=== PATIENT | male | born 1965 | race Caucasian/White ===

== ENCOUNTER 2019-05-31 07:50 | Day surgery (SDC) | payer MEDICAID ==
[~2019-05-31 07:50] MED LIST: Lactated Ringers 1,000 ML IV SCH
[2019-05-31] MEDS ORDERED: Propofol 200 MG/20 ML SDV ONE ×2 (09:03→10:04)
[2019-05-31] MEDS ORDERED: fentaNYL 100 MCG/2 ML SDV ONE (09:03)
[2019-05-31] MEDS ORDERED: Ondansetron 4 MG/2 ML SDV ONE (09:49)
[2019-05-31 12:39] VITALS: BP 110/65; PULSE 61
== END 2019-05-31 13:05 | disposition home or self-care (01) ==
LOC: VM.SDS 07:50
PROVIDERS: ATTEND Surgery
DX: K58.9 Irritable bowel syndrome, unspecified (principal); K64.8 Other hemorrhoids; Q43.8 Other specified congenital malformations of intestine; E78.5 Hyperlipidemia, unspecified; E29.1 Testicular hypofunction; F32.9 Major depressive disorder, single episode, unspecified; G43.909 Migraine, unspecified, not intractable, without status migrainosus; G47.10 Hypersomnia, unspecified; K21.9 Gastro-esophageal reflux disease without esophagitis; F41.9 Anxiety disorder, unspecified; R06.83 Snoring; M17.11 Unilateral primary osteoarthritis, right knee; Z88.8 Allergy status to other drugs, medicaments and biological substances; Z88.4 Allergy status to anesthetic agent; Z79.899 Other long term (current) drug therapy
CPT/HCPCS: J2405; J2704; J3010; J7120

== ENCOUNTER 2019-10-29 20:26 | Emergency (ER) | payer MEDICAID ==
[2019-10-29] MEDS ORDERED: Sodium Chloride 0.9% 10 ML Syringe FLUSH PRN (21:04)
[2019-10-29] MEDS ORDERED: Sodium Chloride 0.9% 1,000 ML IV ONE (21:05)
[2019-10-29 21:18] VITALS: BP 126/78; PULSE 68
[2019-10-29 21:54] LABS: CHLORIDE,CL 105 mmol/L (98-107); SODIUM,NA 144 mmol/L (136-145)
[2019-10-29 21:55] LABS: ANION GAP 16.6 mmol/L (10-20)
--- NOTE | 2019-10-30 05:08 | EDM.PDOC ---
ED HPI GENERAL MEDICAL PROBLEM - General Chief Complaint: General Stated Complaint: Vomiting, headache Time Seen by Provider: 10/29/19 20:40 Source of Information: Reports: Patient History Limitations: Reports: No Limitations - History of Present Illness INITIAL COMMENTS - FREE TEXT/NARRATIVE: Pt. presents to ER with complaints of nausea, vomiting, chills, and loose stools today. Pt. states that the symptoms started this AM. He states that he is actually feeling better than he was. He has not been checking his temp. Denies any cough or chest congestion. He has had influenza B this year. Denies any chest pain or shortness of breath. He states that he is hungry and wonders if he can eat. Denies and focal abdominal discomfort. He complaints of diffuse abdominal cramping, however. Denies any sick contacts. Onset: Today Onset Date: 10/30/19 Location: Reports: Abdomen, Generalized Associated Symptoms: Reports: Nausea/Vomiting frontal headache Pain Score (Numeric/FACES): 3 - Related Data Allergies Allergy/AdvReac Type Severity Reaction Status Date / Time duloxetine HCl Allergy Other Verified 10/29/19 21:18 [From Cymbalta] meclizine HCl [From Antivert] Allergy Hives Verified 10/29/19 21:18 GENERAL ANESTHESIA Allergy Other Uncoded 10/29/19 21:18 Home Meds: Home Meds Lubiprostone [Amitiza] 8 mcg PO BID 02/10/16 [History] Past Medical History HEENT History: Reports: Allergic Rhinitis, Impaired Vision, Other (See Below) Other HEENT History: Pt states has had problems with jaw locking in the past but never needed treatment. Jaw dislocation. cerumen impaction. vitreous detachment Cardiovascular History: Reports: High Cholesterol Respiratory History: Reports: None, Other (See Below) Other Respiratory History: dyspnea Gastrointestinal History: Reports: Chronic Constipation, Irritable Bowel Syndrome, Other (See Below) Other Gastrointestinal History: abdomenal pain, Fructose intolerant Genitourinary History: Reports: None Musculoskeletal History: Reports: Osteoarthritis Other Musculoskeletal History: Right knee Neurological History: Reports: Migraines Psychiatric History: Reports: Depression, Other (See Below) Other Psychiatric History: fatigue Endocrine/Metabolic History: Reports: None Hematologic History: Reports: None Other Immunologic History: IBS-C Oncologic (Cancer) History: Reports: None Dermatologic History: Reports: Eczema - Past Surgical History Cardiovascular Surgical History: Reports: None Musculoskeletal Surgical History: Reports: None ED ROS GENERAL - Review of Systems Review Of Systems: See Below Constitutional: Reports: No Symptoms HEENT: Reports: No Symptoms Respiratory: Reports: No Symptoms Cardiovascular: Reports: No Symptoms Endocrine: Reports: No Symptoms GI/Abdominal: Reports: Flatus, Mucous in Stool, Nausea, Vomiting : Reports: No Symptoms Musculoskeletal: Reports: No Symptoms Skin: Reports: No Symptoms Neurological: Reports: No Symptoms Psychiatric: Reports: No Symptoms Hematologic/Lymphatic: Reports: No Symptoms Immunologic: Reports: No Symptoms ED EXAM, GENERAL - Physical Exam Exam: See Below Exam Limited By: No Limitations General Appearance: Alert, WD/WN, No Apparent Distress Eye Exam: Bilateral Eye: EOMI Nose: Normal Inspection, Normal Mucosa, No Blood Throat/Mouth: Normal Inspection, Normal Lips, Normal Teeth, Normal Gums, Normal Oropharynx, Normal Voice, No Airway Compromise Head: Atraumatic, Normocephalic Neck: Normal Inspection, Supple, Non-Tender, Full Range of Motion Respiratory/Chest: No Respiratory Distress, Lungs Clear, Normal Breath Sounds, No Accessory Muscle Use, Chest Non-Tender Cardiovascular: Normal Peripheral Pulses, Regular Rate, Rhythm, No Edema, No Gallop, No JVD, No Murmur, No Rub Peripheral Pulses: 4+: Radial (L) GI/Abdominal: Normal Bowel Sounds, Soft, Other (diffusely tender throughout). No: Hepatomegaly, Splenomegaly (Male) Exam: Deferred Rectal (Males) Exam: Deferred Back Exam: Normal Inspection, Full Range of Motion Extremities: Normal Inspection, Normal Range of Motion, Normal Capillary Refill Neurological: Alert, Oriented, CN II-XII Intact, Normal Cognition, Normal Gait, Normal Reflexes, No Motor/Sensory Deficits Psychiatric: Normal Affect, Normal Mood Skin Exam: Warm, Dry, Intact, Normal Color, No Rash Lymphatic: No Adenopathy Course - Vital Signs Last Recorded V/S: Last Vital Signs Temp 37.6 C 10/29/19 20:26 Pulse 68 10/29/19 20:26 Resp 16 10/29/19 20:26 BP 126/78 10/29/19 20:26 Pulse Ox 97 10/29/19 20:26 - Orders/Labs/Meds Orders: Active Orders 24 hr Category Date Time Status Peripheral IV Insertion Adult [OM.PC] Routine Oth 10/29/19 21:05 Ordered Labs: Laboratory Tests 10/29/19 10/29/19 10/29/19 Range/Units 21:22 21:22 21:25 WBC 9.3 (4.0-10.0) x10^3/uL RBC 4.92 (4.5-6.0) x10^6/uL Hgb 15.9 D (14.0-18.0) g/dL Hct 45.3 (40.0-52.0) % MCV 92.1 (78.0-93.0) fL MCH 32.3 H (26.0-32.0) pg MCHC 35.1 (32.0-36.0) g/dL RDW Coeff of Ricki 12.4 (10.0-15.0) % Plt Count 177 (130-400) x10^3/uL Neut % (Auto) 77.8 (50.0-80.0) % Lymph % (Auto) 14.5 L (25.0-50.0) % [place] % (Auto) 7.2 (2.0-11.0) % Eos % (Auto) 0.3 (0.0-4.0) % Baso % (Auto) 0.2 (0.2-1.2) % Sodium 144 (136-145) mmol/L Potassium 3.6 (3.5-5.1) mmol/L Chloride 105 (98-107) mmol/L Carbon Dioxide 26 (21-32) mmol/L Anion Gap 16.6 (10-20) mmol/L BUN 22 H (7-18) mg/dL Creatinine 0.9 (0.70-1.30) mg/dL Est Cr Clr Drug Dosing 95.76 mL/min Estimated GFR (MDRD) > 60 Glucose 103 (74-106) mg/dL Calcium 9.3 (8.5-10.1) mg/dL Corrected Calcium 9.54 (8.5-10.1) mg/dL Magnesium 2.1 (1.8-2.4) mg/dL Total Bilirubin 0.6 (0.2-1.0) mg/dL AST 27 (15-37) U/L ALT 46 (16-63) U/L Alkaline Phosphatase 72 (46-116) U/L Total Protein 7.6 (6.4-8.2) g/dL Albumin 3.7 (3.4-5.0) g/dL Globulin 3.9 Albumin/Globulin Ratio 0.95 Urine Color Yellow (YELLOW) Urine Appearance Clear (CLEAR) Urine pH 7.5 (5.0-8.0) Ur Specific [place] 1.015 Urine Protein Negative (NEGATIVE) mg/dL Urine Glucose (UA) Negative (NEGATIVE) mg/dL Urine Ketones Negative (NEGATIVE) mg/dL Urine Occult Blood Negative (NEGATIVE) Urine Nitrite Negative (NEGATIVE) Urine Bilirubin Negative (NEGATIVE) Urine Urobilinogen 0.2 (0.2) EU/dL Ur Leukocyte Esterase Negative (NEGATIVE) Meds: Medications Discontinued Medications Generic Name Dose Route Start Last Admin Trade Name Freq PRN Reason Stop Dose Admin Sodium Chloride 1,000 mls @ 1,000 mls/hr 10/29/19 21:05 10/29/19 21:20 Normal Saline IV 10/29/19 22:04 1,000 mls/hr .BOLUS ONE Administration Sodium Chloride 10 ml 10/29/19 21:04 Saline Flush FLUSH ASDIRECTED PRN Keep Vein Open Departure - Departure Time of Disposition: 22:37 Disposition: Home, Self-Care 01 Clinical Impression: Gastroenteritis - Discharge Information Referrals: PCP,Not In Area [Primary Care Provider] - Forms: ED Department Discharge Additional Instructions: Home to rest. Do not eat tonight. Just concentrate on keeping small sips of water down until tomorrow at noon, then slowly advance your diet to include bland foods such as rice, toast, apples and bananas. Recheck in clinic in 7-10 days. Sepsis Event Note - Evaluation Sepsis Screening Result: No Definite Risk - Focused Exam Vital Signs: Vital Signs Temp Pulse Resp BP Pulse Ox 10/29/19 20:26 37.6 C 68 16 126/78 97 Date Exam was Performed: 10/30/19 Time Exam was Performed: 05:03 - My Orders Last 24 Hours: My Active Orders 10/29/19 21:05 Peripheral IV Insertion Adult [OM.PC] Routine - Assessment/Plan Last 24 Hours: My Active Orders 10/29/19 21:05 Peripheral IV Insertion Adult [OM.PC] Routine Plan: Home to rest. Do not eat tonight. Just concentrate on keeping small sips of water down until tomorrow at noon, then slowly advance your diet to include bland foods such as rice, toast, apples and bananas. Recheck in clinic in 7-10 days.
== END 2019-10-29 22:37 | disposition home or self-care (01) ==
LOC: VM.ED 20:26
DX: K52.9 Noninfective gastroenteritis and colitis, unspecified (principal); Z88.8 Allergy status to other drugs, medicaments and biological substances
CPT/HCPCS: 80053; 81003; 83735; 85025; 96360; 99284; J7030

== ENCOUNTER 2021-12-06 14:51 | Emergency (ER) | payer MEDICAID ==
[2021-12-06 16:07] VITALS: BP 122/81; PULSE 84
[2021-12-06 16:19] LABS: CHLORIDE,CL 105 mmol/L (98-107); SODIUM,NA 141 mmol/L (136-145)
[2021-12-06 16:23] LABS: ANION GAP 12.6 mmol/L (5-15)
[2021-12-06 16:25] LABS: PTT,PARTIAL THROMBOPLSTIN TIME 23.1 SEC (20.5-30.9)
[2021-12-06 17:00] LABS: CORONAVIRUS COVID-19 NAA NEGATIVE (NEGATIVE); RESPIRATORY SYNCYTIAL VIR NAA NEGATIVE (NEGATIVE)
== END 2021-12-06 17:15 | disposition home or self-care (01) ==
LOC: VM.ED 14:51
DX: R07.89 Other chest pain (principal); E78.00 Pure hypercholesterolemia, unspecified; Z88.8 Allergy status to other drugs, medicaments and biological substances; Z20.822 Contact with and (suspected) exposure to COVID-19
CPT/HCPCS: 0241U; 36415; 71046; 80053; 84484; 85025; 85379; 85610; 85730; 86140; 93005; 93010; 99284; 99285-25

== ENCOUNTER 2024-05-08 09:33 | Day surgery (SDC) | payer MEDICAID ==
[2024-05-08] MEDS: Lactated Ringers 1,000 ML IV SCH (09:56)
[2024-05-08] MEDS ORDERED: fentaNYL 100 MCG/2 ML SDV ONE (10:16)
[2024-05-08] MEDS ORDERED: Propofol 200 MG/20 ML SDV ONE ×2 (10:16→10:47)
[2024-05-08] MEDS ORDERED: Ondansetron 4 MG/2 ML SDV ONE (10:18)
[2024-05-08 11:30] VITALS: BP 111/64; PULSE 63
== END 2024-05-08 12:17 | disposition home or self-care (01) ==
LOC: VM.SDS 09:33
PROVIDERS: ATTEND Surgery
DX: Z12.11 Encounter for screening for malignant neoplasm of colon (principal); Z86.0100 Personal history of colon polyps, unspecified; E78.5 Hyperlipidemia, unspecified; Z79.899 Other long term (current) drug therapy
CPT/HCPCS: 00811; J2405; J2704; J3010; J7120